=== PATIENT | female | born 1990 | race Caucasian/White ===

== ENCOUNTER → 2021-04-27 10:34 | Outpatient (BNVA) | payer MEDICAID, SELFPAY | PROVIDERS: PCP Family Medicine; Visit Provider Nurse Practitioner Family ==

== ENCOUNTER 2021-05-16 10:06 | Outpatient (REF) | payer MEDICAID, SELFPAY ==
--- NOTE | ~2021-05-16 | XR_ITS ---
EXAMINATION: XR CERVICAL SPINE CLINICAL INFORMATION: R25.0 - Abnormal head movements COMPARISON: None TECHNIQUE: Cervical spine is imaged in 4 views: AP, lateral, odontoid x2. FINDINGS: Normal cervical lordosis with vertebral bodies of normal height. Borderline rightward tilting on AP view. The odontoid appears intact. There is no vertebral compression, spondylolisthesis, disc narrowing, destructive process, or prevertebral soft tissue swelling. No erosive changes. XR/XR cervical spine 2V IMPRESSION: Unremarkable examination.
== END 2021-05-16 10:07 | disposition home or self-care (01) ==
LOC: HO.XRAY 10:06
PROVIDERS: PCP Family Medicine; Visit Provider Nurse Practitioner Family
DX: M54.2 Cervicalgia (principal); R25.0 Abnormal head movements
CPT/HCPCS: 72040

== ENCOUNTER 2021-07-26 10:05 | Outpatient (RCR) | payer MEDICAID, SELFPAY | END 2021-08-03 11:58 | disposition home or self-care (01) | LOC: HO.PTCHIC 10:05 | PROVIDERS: PCP Family Medicine; Visit Provider Nurse Practitioner Family | DX: M54.2 Cervicalgia (principal); R25.0 Abnormal head movements | CPT/HCPCS: 97140; 97161 ==

== ENCOUNTER 2023-02-05 14:31 | Outpatient (AMB) | payer MEDICAID, SELFPAY ==
--- NOTE | 2023-02-05 14:40 | MHC.OFFVIS ---
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 Cadastral Surveyor Required: No Allergies [facility] Allergy (Intermediate, Verified 02/05/23 14:47) Hives Medication List - Last Reconciled 02/05/23 by Cristina Bach MD atomoxetine 50 mg PO DAILY clonidine HCl 0.1 mg PO BEDTIME fluoxetine 40 mg PO DAILY gabapentin 300 mg PO BID olanzapine 7.5 mg PO QPM HPI HPI Comments History of Present Illness Details 32y/o female with abnormal head jerking ( TICS) comes for further management. she reports these movements since childhood but did not get treatment as they were mild. Anxiety increases her movements. she is not sure if the head movements can be controlled. She has movements everyday and her friends and family notice. she denies any discomfort but is socially embarrassed.she also has OCD diagnosed 2 years ago. she also has been diagnosed with ADD.No vocal TICS she was born full term with no significant developmental issues. she did not do well in school was unable to graduate. she need IEP in school she does not work now due to her depression. Her 9 year old son has some TICS. [facility] Medical History (Updated 02/05/23 @ 15:16 by Cristina Bach MD) Tic disorder ADHD Anxiety Sleep deprivation Family History Mother Anxiety Sister Depression ADHD Social History Household Members: Children Housing: Apartment Alcohol intake: current Comment: Occasional Patient Tobacco Use Status: Never used Tobacco Use of substances other than those prescribed or required for medical reasons: No Current occupational status: disabled Review of Systems Psych Reports anxiety and Reports depression Physical Exam Vital Signs: Last Vital Signs Pulse 107 H 02/05/23 14:42 Resp 16 02/05/23 14:42 BP 138/86 02/05/23 14:42 Pulse Ox 98 02/05/23 14:42 Oxygen Delivery Method Room Air 02/05/23 14:42 BMI result Body Mass Index 34.3 Const General: cooperative, healthy appearing, comfortable and no acute distress Nutritional Appearance: average body habitus Orientation/consciousness: patient oriented x3 Eyes Pupils: Equal, round and reactive pupils present Neuro Other: Mild neck and head jerks intermittent General: patient oriented x3, tone normal, moves all extremities and no focal motor deficits Cranial nerves: Yes Facial sensation intact/muscles of mastication intact, Yes Equal, round and reactive pupils present, Yes Bilaterally intact EOM present, Yes Nystagmus not present, Yes Normal facial strength present, Yes Midline tongue present and Yes Ability to bilaterally elevate shoulders present Cognition (Neuro): normal cognition Gait exam (Neuro): Normal gait present Motor exam (neuro): 5/5 motor strength present throughout and Normal motor muscle tone present throughout Deep tendon reflexes (DTR's): Right triceps reflex intensity grade: 1+, Left triceps reflex intensity grade: 1+, Rt Biceps (C5, C6): 1+, Left biceps reflex intensity grade: 1+, Right brachioradialis reflex intensity grade: 1+, Left brachioradialis reflex intensity grade: 1+, Right patellar reflex intensity grade: 1+ and Left patellar reflex intensity grade: 1+ Coordination: [id number] test normal Assessment & Plan Assessment & Plan (1) Tic disorder: Comment: ? Tourette's .Patient also has OCD and ADD Code(s): F95.9 - Tic disorder, unspecified Plan: I will trial her on Clonidine 0.1 mg qhs discussed diagnosis in detail Medications: New clonidine HCl 0.1 mg PO BEDTIME 30 tabs 4RF Coding Level of Care Code New Pt Level 4 (60983) Diagnoses Tic disorder F95.9
[2023-02-05 14:42] VITALS: BP 138/86; PULSE 107; RESP 16; O2SAT 98; BMI 34.3
== END 2023-02-05 15:22 | disposition home or self-care (01) ==
PROVIDERS: PCP Family Medicine; Visit Provider Psychiatry & Neurology Neurology
DX: F95.9 Tic disorder, unspecified (principal); F42.9 Obsessive-compulsive disorder, unspecified; F90.0 Attention-deficit hyperactivity disorder, predominantly inattentive type
CPT/HCPCS: 99204

== ENCOUNTER → 2023-02-05 14:31 | Outpatient (BNVA) | payer MEDICAID, SELFPAY | PROVIDERS: PCP Family Medicine; Visit Provider Psychiatry & Neurology Neurology | DX: F95.9 Tic disorder, unspecified (principal) | CPT/HCPCS: 99202 ==